=== PATIENT | male | born 1965 | race Caucasian/White ===

== ENCOUNTER → 2016-03-09 | Outpatient (CLI) | payer BC ==
[~2016-03-09] MED LIST: ADVIL,MOTRIN,R200 MG PO; CELEBREX50 MG PO; CHERATUSSIN AC120 ML PO; CIPROFLOXACIN500 MG PO; CLINDAMYCIN HC150 MG PO; HYDROCODONE BIT1 T11 PO; LEVAQUIN250 MG PO; LISINOPRIL HCTZ1 TA1 PO; LISINOPRIL10 MG PO; LYRICA25 MG PO; LYRICA75 M1 PO; MEDROL DOSEPAK4 MG PO; METOPROLOL SUCC50 M1 PO; MILLIPRED DP5 MG PO; MOBIC15 MG PO; MOBIC7.5 MG/5 M PO; NORCO 5-325 TA1 EACH PO; PAXIL10 MG PO; PAXIL30 M2 PO; PERCOCET 325 MG1 TA7 PO; PRAVACHOL10 MG PO; PRAVACHOL40 MG PO; PREDNICOT20 MG PO; PRILOSEC40 M1 PO; PROTONIX40 MG PO; VICODIN 500 MG-1 TAB PO; VIT D PO; ZOFRAN ODT4 MG SL; Zofran4 MG PO
[2016-03-09 08:40] LABS: BASO # 0.1 10*3/uL (0.0-0.1); BASO % 0.9 % (0.0-1.0); EOS # 0.3 10*3/uL (0.0-0.4); EOS % 3.3 % (1.0-4.0); HEMATOCRIT 45.7 % (42.0-52.0); HEMOGLOBIN 15.5 g/dl (14.0-18.0); IG # 0.1 10*3/uL (0.0-0.1); LYMPH # 2.5 10*3/uL (1.3-4.4); LYMPH % 30.9 % (27.0-41.0); MEAN CORPUSCULAR HGB 30.5 pg (27.0-31.0); MEAN CORPUSCULAR HGB CONC 33.9 g/dl (33.0-37.0); MEAN PLATELET VOLUME 9.8 fl (9.6-12.3); MONO % 12.5 % (3.0-9.0); NEUT # 4.2 10*3/uL (2.3-7.9); NEUT % 51.8 % (47.0-73.0); PLATELET COUNT AUTOMATED 206 10*3/uL (130-400); RED BLOOD COUNT 5.08 10*6/uL (4.50-5.90); RED CELL DISTRI WIDTH 12.7 % (0-14.5); WHITE BLOOD COUNT 8.2 10*3/uL (4.8-10.8)
[2016-03-09 09:25] LABS: ALBUMIN 3.8 gm/dl (3.1-4.5); ALKALINE PHOSPHATASE 76 U/L (45-117); BILIRUBIN, TOTAL 0.4 mg/dl (0.2-1.0); BUN 19 mg/dl (7-24); CARBON DIOXIDE 27 mmol/L (21-32); CHLORIDE 105 mmol/L (98-107); EST GLOM FILT AFRICAN AMERICAN > 60 ml/min; GLUCOSE 109 mg/dL (65-99); POTASSIUM 3.9 mmol/L (3.5-5.1); SGOT/AST 23 IU/L (3-35); SGPT/ALT 77 U/L (12-78); SODIUM 139 mmol/L (136-145); TOTAL PROTEIN 7.5 gm/dL (6.4-8.2)
[2016-03-09 09:34] LABS: CEA 2.1 ng/mL; THYROID STIM HORMONE (HS) 1.74 uIU/ml (0.358-4.75)
== END | disposition home or self-care (01) ==
LOC: LAB 08:14
PROVIDERS: Internal Medicine
DX: I10 Essential (primary) hypertension (principal); E78.2 Mixed hyperlipidemia; R91.1 Solitary pulmonary nodule

== ENCOUNTER → 2016-06-13 | Outpatient (CLI) | payer BC ==
[~2016-06-13] MED LIST changes: +ASPIRIN81 M1 PO; +CYCLOBENZAPRINE10 MG PO; +METOPROLOL SUC100 M1 PO; +PRAVACHOL20 MG PO; +TRICOR48 MG PO; +ZESTORETIC 12.51 TA1 PO
--- NOTE | ~2016-06-13 | ST ---
[place], [place] EXERCISE STRESS TEST REPORT NAME: MARK ANTHONY [facility]ARDIN [facility]: [id number] UNIT #: [id number] ROOM: DOCTOR: PIPPA VERDIN MD BIRTHDATE: [birth year] DOS: 06/13/2016 PHARMACOLOGIC STRESS TEST Study was done and is being dictated on 06/13/2016. INDICATIONS: Preoperative assessment prior to lung resection. PROCEDURE: The patient was given a rapid infusion of regadenoson 0.4 mg intravenously followed by a saline flush. He experienced dyspnea, abdominal pressure and head pressure. The resting electrocardiogram was normal. With the infusion, he had a normal increase in heart rate, but no diagnostic ST or T-wave changes. The resting heart rate of 64 brian to 93. The resting blood pressure of 108/72 fell to 98/60. Forty seconds after the infusion of regadenoson, radionuclide was administered. IMPRESSION: 1. Well tolerated infusion of regadenoson. 2. Radionuclide injected. Please see the separate imaging report for further details of the patient's stress test results. PIPPA VERDIN MD CM:STRESS:EXERCISE STRESS TEST REPORT [id number] PIPPA VERDIN MD
== END | disposition home or self-care (01) ==
LOC: CARD 02:56
DX: I10 Essential (primary) hypertension (principal)

== ENCOUNTER → 2017-02-04 | Outpatient (CLI) | payer OTHER ==
[2017-02-04 07:43] LABS: BASO # 0.1 10*3/uL (0.0-0.1); BASO % 0.6 % (0.0-1.0); EOS # 0.3 10*3/uL (0.0-0.4); EOS % 3.3 % (1.0-4.0); HEMATOCRIT 44.8 % (42.0-52.0); HEMOGLOBIN 15.1 g/dl (14.0-18.0); LYMPH # 2.1 10*3/uL (1.3-4.4); MEAN CELL VOLUME 88.9 fl (80.0-94.0); MEAN CORPUSCULAR HGB CONC 33.7 g/dl (33.0-37.0); MEAN PLATELET VOLUME 10.5 fl (9.6-12.3); MONO % 10.5 % (3.0-9.0); NEUT # 6.3 10*3/uL (2.3-7.9); NEUT % 64.2 % (47.0-73.0); PLATELET COUNT AUTOMATED 206 10*3/uL (130-400); RED BLOOD COUNT 5.04 10*6/uL (4.50-5.90); RED CELL DISTRI WIDTH 13.2 % (0-14.5); WHITE BLOOD COUNT 9.8 10*3/uL (4.8-10.8)
[2017-02-04 08:11] LABS: ALBUMIN 3.6 gm/dl (3.1-4.5); ALKALINE PHOSPHATASE 87 U/L (45-117); BUN 20 mg/dl (7-24); CHLORIDE 105 mmol/L (98-107); CHOLESTEROL 290 mg/dL (<200); CREATININE 1.03 mg/dL (0.70-1.30); HDL CHOLESTEROL 35 mg/dl (40-60); POTASSIUM 4.1 mmol/L (3.5-5.1); SGOT/AST 25 IU/L (3-35); SGPT/ALT 60 U/L (12-78); SODIUM 140 mmol/L (136-145); TOTAL PROTEIN 7.3 gm/dL (6.4-8.2); TRIGLYCERIDES 552 mg/dl (<150)
[2017-02-04 08:18] LABS: THYROID STIM HORMONE (HS) 0.684 uIU/ml (0.358-4.75)
[2017-02-06 07:08] LABS: RHEUMATOID ARTHRITIS FACTOR <10.0 IU/mL (0.0-13.9)
[2017-02-06 21:05] LABS: CCP ANTIBODIES IGG/IGA 3 units (0-19)
== END | disposition home or self-care (01) ==
LOC: LAB 06:49
PROVIDERS: Internal Medicine
DX: J43.9 Emphysema, unspecified (principal); E78.2 Mixed hyperlipidemia; G47.33 Obstructive sleep apnea (adult) (pediatric); E66.2 Morbid (severe) obesity with alveolar hypoventilation; I10 Essential (primary) hypertension; E55.9 Vitamin D deficiency, unspecified; M15.0 Primary generalized (osteo)arthritis

== ENCOUNTER → 2017-08-14 | Outpatient (CLI) | payer OTHER ==
[~2017-08-14] MED LIST changes: +Anusol Hc,Anuco25 MG R; +GEMFIBROZIL600 MG PO; +Metformin Hydr500 MG PO; -PRAVACHOL20 MG PO; +SIMVASTATIN20 MG PO; +TRICOR145 M1 PO; +VITAMIN D-32000 UNIT PO
== END | disposition home or self-care (01) ==
LOC: D 15:09
DX: E11.9 Type 2 diabetes mellitus without complications (principal); Z88.6 Allergy status to analgesic agent; Z88.1 Allergy status to other antibiotic agents

== ENCOUNTER 2017-08-23 05:31 | Inpatient (IN) | payer OTHER ==
[~2017-08-23] VITALS: Ht 172.7 cm; Wt 117.4 kg
[2017-08-23] VITALS (20 sets, daily range): BP systolic 80–120; BP diastolic 35–68
--- NOTE | ~2017-08-23 | O ---
[place], [place] OPERATIVE NOTE NAME: MARK ANTHONY HARDIN UNIT #: [id number] [facility] DOCTOR: CARLOTA NGUYENDAVISFORMERLY [facility] BIRTH[facility] [birth year] DOS: 08/24/2017 GASTROENDOSCOPIC REPORT INDICATIONS: The patient is a 52-year-old who has presented to Emergency Room with chief complaint of lower GI or rectal bleeding. The patient had stable H and H at the time of admission with 14 and 41.8. Basic metabolic BUN and creatinine was elevated at 45 and 1.9. We were concerned about that. GFR was 45. This was possibly signaling that there could be an upper GI bleed. Electrolytes were balanced. CBC differential, white blood cell remained normal and platelet was within normal limits. Ionized calcium was 4.8. Lactic acid dropped to 1.5. INR was 0.9. Comprehensive metabolic panel reassessed. Further confirmation of elevation of BUN and creatinine was of concern to 52 and 2.24. Hemoglobin A1c 6.3. CT scan of the abdomen and pelvis was done. Normal bowel wall index, no herniation, moderate hepatomegaly, marked diffuse hepatic steatosis, no gallstone, postsurgical scarring of the left lower lobe, severe spinal canal narrowing at the L3-L4 CT scan of the chest was done, scarring of left lower lobe was again noticed as old information. His MRSA was negative. Comprehensive metabolic panel again readdressed and drop of BUN and creatinine to 33 and 1.3 after hydration was noticed. Electrolytes remain normal. Magnesium 2.3 and triglycerides 606. On the other hand, the liver function tests are normal, so this should not be "the biliary distress," but for sure, we are going to obtain a serum lipase and amylase to make sure we have a baseline and we are going to consider therapy after the above problem. PAST MEDICAL HISTORY: Has been associated with obesity, major depression, hypertension, anxiety, lung cancer, lumbar radiculopathy, spinal stenosis. PAST SURGICAL HISTORY: Diskectomy, laminectomy, pneumonectomy, left shoulder prosthesis and renal stent. SOCIAL HISTORY: Marijuana user, tobacco user and social alcohol consumer. FAMILY HISTORY: Noncontributory, adopted. ALLERGIES: KEFLEX. MEDICATIONS: Reviewed. He is already on fenofibrate at home, TriCor has been taken fenofibrate. PROCEDURE: Today's procedure part of investigation of rectal bleed, bright blood per rectum is colonoscopy. PREMEDICATION: Propofol. SCOPE: Olympus forward-viewing colonoscope 10L video. REPORT: After putting the patient in left lateral position and application of lubricant to the scope, the scope was introduced; thereafter, under direct visualization, advanced through the length of colon without difficulty. [place], [place] OPERATIVE NOTE NAME: MARK ANTHONY HARDIN UNIT #: [id number] ROOM: [facility] DOCTOR: CARLOTA NGUYEN,CARIN BIRTHDATE: [birth year] the cecum explored, appendiceal orifice identified, ileocecal valve was defined. No ischemia, no ulceration, no mucosal disturbance was seen throughout the entire colon. GI reflection of the scope in the rectum yields as very small hemorrhoid with some anusitis. The patient extubated after photographic series, tolerated the procedure well. IMPRESSION: Very small hemorrhoid and mild anusitis. PLAN AND DISCUSSION: Anucort-HC suppository 1 at bedtime for the next 4 days and then after that p.r.n. The patient advised not to be concerned about future spots bleeding as well. As far as the extreme hypertriglyceridemia is concerned, Lopid 600 mg b.i.d. is recommended till the triglyceride levels are normalized and then on a maintenance TriCor and other alternatives in future. A serum lipase and amylase is going to be organized in case he has silent pancreatitis as well on board. Dietary modification discussed with him. CARIN VAN MD CM:OPRECORD:OPERATIVE NOTE [id number] CARIN VAN MD 08/24/17 170 interface
[~2017-08-23 05:31] MED LIST changes: -Anusol Hc,Anuco25 MG R; -GEMFIBROZIL600 MG PO; -Metformin Hydr500 MG PO; -TRICOR145 M1 PO; -VITAMIN D-32000 UNIT PO
[2017-08-23 06:22] LABS: BASO # 0.1 10*3/uL (0.0-0.1); BASO % 0.8 % (0.0-1.0); EOS # 0.4 10*3/uL (0.0-0.4); EOS % 4.5 % (1.0-4.0); HEMATOCRIT 41.4 % (42.0-52.0); HEMOGLOBIN 13.9 g/dl (14.0-18.0); LYMPH # 2.2 10*3/uL (1.3-4.4); LYMPH % 27.2 % (27.0-41.0); MEAN CELL VOLUME 91.8 fl (80.0-94.0); MEAN CORPUSCULAR HGB 30.8 pg (27.0-31.0); MEAN CORPUSCULAR HGB CONC 33.6 g/dl (33.0-37.0); MEAN PLATELET VOLUME 10.5 fl (9.6-12.3); MONO % 12.1 % (3.0-9.0); NEUT # 4.4 10*3/uL (2.3-7.9); NEUT % 54.9 % (47.0-73.0); PLATELET COUNT AUTOMATED 185 10*3/uL (130-400); RED BLOOD COUNT 4.51 10*6/uL (4.50-5.90); RED CELL DISTRI WIDTH 13.7 % (0-14.5)
[2017-08-23 06:31] LABS: ACT PARTIAL THROMBO TIME 25.6 SECONDS (20.8-31.5); INTERNATIONAL NORM RATIO 0.9 (2.0-3.5)
[2017-08-23 06:38] LABS: ALBUMIN 3.8 gm/dl (3.1-4.5); ALKALINE PHOSPHATASE 84 U/L (45-117); BUN 52 mg/dl (7-24); CHLORIDE 107 mmol/L (98-107); CREATININE 2.24 mg/dL (0.70-1.30); LIPASE 253 U/L (73-393); POTASSIUM 4.2 mmol/L (3.5-5.1); SGOT/AST 28 IU/L (3-35); SGPT/ALT 53 U/L (12-78); SODIUM 141 mmol/L (136-145); TOTAL PROTEIN 7.2 gm/dL (6.4-8.2)
[2017-08-23 06:39] LABS: TROPONIN I < 0.015 ng/ml (<0.045)
[2017-08-23 09:14] LABS: BILIRUBIN NEGATIVE (NEGATIVE); BLOOD NEGATIVE (NEGATIVE); CLARITY SL CLOUDY (CLEAR); COLOR YELLOW (YELLOW); GLUCOSE NEGATIVE (NEGATIVE); KETONE NEGATIVE (NEGATIVE); LEUKO ESTERASE NEGATIVE (NEGATIVE); NITRITE NEGATIVE (NEGATIVE); PH 5.5 (5.0-9.0); SPECIFIC GRAVITY 1.025 (1.005-1.030); UROBILINOGEN 0.2 E.U./dl (0.2-1.0)
[2017-08-23 10:02] LABS: BACTERIA TRACE; RBC 0-2 rbc/hpf (0-2)
[2017-08-23] MEDS ORDERED: Metformin Hydr500 MG PO (12:24)
[2017-08-24] VITALS (8 sets, daily range): BP systolic 100–140; BP diastolic 45–92
[2017-08-24 05:57] LABS: BASO # 0.1 10*3/uL (0.0-0.1); BASO % 0.7 % (0.0-1.0); EOS # 0.3 10*3/uL (0.0-0.4); EOS % 4.9 % (1.0-4.0); HEMATOCRIT 40.6 % (42.0-52.0); HEMOGLOBIN 13.2 g/dl (14.0-18.0); LYMPH # 1.8 10*3/uL (1.3-4.4); MEAN CELL VOLUME 92.1 fl (80.0-94.0); MEAN CORPUSCULAR HGB 29.9 pg (27.0-31.0); MEAN CORPUSCULAR HGB CONC 32.5 g/dl (33.0-37.0); MONO # 0.7 10*3/uL (0.1-1.0); MONO % 10.6 % (3.0-9.0); NEUT % 57.5 % (47.0-73.0); PLATELET COUNT AUTOMATED 170 10*3/uL (130-400); RED BLOOD COUNT 4.41 10*6/uL (4.50-5.90); RED CELL DISTRI WIDTH 13.5 % (0-14.5); WHITE BLOOD COUNT 6.9 10*3/uL (4.8-10.8)
[2017-08-24 06:10] LABS: ALBUMIN 3.7 gm/dl (3.1-4.5); ALKALINE PHOSPHATASE 68 U/L (45-117); CHLORIDE 109 mmol/L (98-107); CREATININE 1.31 mg/dL (0.70-1.30); PHOSPHOROUS 2.7 mg/dL (2.5-4.9); POTASSIUM 4.5 mmol/L (3.5-5.1); SGOT/AST 27 IU/L (3-35); SGPT/ALT 51 U/L (12-78); SODIUM 142 mmol/L (136-145)
[2017-08-24 06:13] LABS: ACT PARTIAL THROMBO TIME 25.8 SECONDS (20.8-31.5)
[2017-08-24 06:15] LABS: CHOLESTEROL 220 mg/dL (<200); HDL CHOLESTEROL 28 mg/dl (40-60); TRIGLYCERIDES 606 mg/dl (<150)
[2017-08-24 06:21] LABS: BUN 33 mg/dl (7-24)
[2017-08-24 07:47] LABS: VITAMIN D, 25-HYDROXY 13.8 ng/mL (30-100)
[2017-08-24] MEDS ORDERED: VITAMIN D-32000 UNIT PO (10:43)
[2017-08-24] MEDS ORDERED: TRICOR145 M1 PO (10:47)
[2017-08-24] MEDS ORDERED: Anusol Hc,Anuco25 MG R ×2 (17:35→17:59)
[2017-08-24] MEDS ORDERED: GEMFIBROZIL600 MG PO (17:35)
== END 2017-08-24 17:45 | disposition home or self-care (01) | DRG 393 ==
LOC: ED 05:31 → EDHOLD 10:09 → ICCU 10:09
PROVIDERS: Emergency Medicine Emergency Medical Services; Family Medicine
PROC: 0DJD8ZZ Inspection of Lower Intestinal Tract, Via Natural or Artificial Opening Endoscopic (ICD-10-PCS; principal; 2017-08-24)
DX: K64.9 Unspecified hemorrhoids (principal); N17.0 Acute kidney failure with tubular necrosis; I95.9 Hypotension, unspecified; E11.65 Type 2 diabetes mellitus with hyperglycemia; K76.0 Fatty (change of) liver, not elsewhere classified; E83.41 Hypermagnesemia; E66.01 Morbid (severe) obesity due to excess calories; F33.9 Major depressive disorder, recurrent, unspecified; M48.061 Spinal stenosis, lumbar region without neurogenic claudication; J44.9 Chronic obstructive pulmonary disease, unspecified; M54.16 Radiculopathy, lumbar region; M54.30 Sciatica, unspecified side; F41.1 Generalized anxiety disorder; I10 Essential (primary) hypertension; Z85.118 Personal history of other malignant neoplasm of bronchus and lung; F17.210 Nicotine dependence, cigarettes, uncomplicated; Z88.1 Allergy status to other antibiotic agents; Z79.82 Long term (current) use of aspirin; Z79.84 Long term (current) use of oral hypoglycemic drugs; Z71.6 Tobacco abuse counseling; F12.10 Cannabis abuse, uncomplicated; K62.89 Other specified diseases of anus and rectum; Z68.39 Body mass index [BMI] 39.0-39.9, adult

== ENCOUNTER 2018-01-02 15:11 | Emergency (ER) | payer OTHER ==
[~2018-01-02] VITALS: Ht 172.7 cm; Wt 117.9 kg
[~2018-01-02 15:11] MED LIST changes: +Anusol Hc,Anuco25 MG R; +GEMFIBROZIL600 MG PO; +Metformin Hydr500 MG PO; +TRICOR145 M1 PO; +VITAMIN D-32000 UNIT PO
[2018-01-02] MEDS ORDERED: CYCLOBENZAPRINE10 MG PO (15:40)
[2018-01-02] MEDS ORDERED: NAPROSYN500 MG PO (15:40)
[2018-01-02] MEDS ORDERED: PREDNISONE50 MG PO (15:40)
== END 2018-01-02 16:50 | disposition home or self-care (01) ==
LOC: ED 15:11
DX: S39.012A Strain of muscle, fascia and tendon of lower back, initial encounter (principal); R10.32 Left lower quadrant pain; I10 Essential (primary) hypertension; E11.9 Type 2 diabetes mellitus without complications; E78.5 Hyperlipidemia, unspecified; F17.200 Nicotine dependence, unspecified, uncomplicated; Z88.1 Allergy status to other antibiotic agents; Z79.899 Other long term (current) drug therapy; Z98.890 Other specified postprocedural states; X50.1XXA Overexertion from prolonged static or awkward postures, initial encounter; Y93.89 Activity, other specified; Y92.89 Other specified places as the place of occurrence of the external cause; Y99.8 Other external cause status

== ENCOUNTER → 2018-08-11 | Outpatient (CLI) | payer OTHER ==
[~2018-08-11] MED LIST changes: +NAPROSYN500 MG PO; +PREDNISONE50 MG PO
[2018-08-11 07:45] LABS: HEMATOCRIT 48.6 % (42.0-52.0); MEAN CORPUSCULAR HGB CONC 32.9 g/dl (33.0-37.0); MEAN PLATELET VOLUME 10.3 fl (9.6-12.3); RED BLOOD COUNT 5.34 10*6/uL (4.50-5.90); RED CELL DISTRI WIDTH 12.9 % (0-14.5)
[2018-08-11 08:10] LABS: ALBUMIN 3.5 gm/dl (3.1-4.5); ALKALINE PHOSPHATASE 112 U/L (45-117); BUN 12 mg/dl (7-24); CHLORIDE 106 mmol/L (98-107); CHOLESTEROL 256 mg/dL (<200); CREATININE 1.03 mg/dL (0.70-1.30); HDL CHOLESTEROL 32 mg/dl (40-60); LDL CHOLESTEROL 151 mg/dL (9-159); POTASSIUM 3.7 mmol/L (3.5-5.1); SGOT/AST 39 IU/L (3-35); SGPT/ALT 73 U/L (12-78); SODIUM 140 mmol/L (136-145); TOTAL PROTEIN 7.1 gm/dL (6.4-8.2); TRIGLYCERIDES 365 mg/dl (<150); VLDL CHOLESTEROL 73 mg/dL (6-40)
== END | disposition home or self-care (01) ==
LOC: LAB 06:43
PROVIDERS: Physician Assistant
DX: E11.9 Type 2 diabetes mellitus without complications (principal); F33.41 Major depressive disorder, recurrent, in partial remission; G89.29 Other chronic pain; C34.92 Malignant neoplasm of unspecified part of left bronchus or lung

== ENCOUNTER → 2018-12-23 | Outpatient (CLI) | payer OTHER ==
[2018-12-23 09:36] LABS: CREATININE 0.93 mg/dL (0.70-1.30)
== END | disposition home or self-care (01) ==
LOC: CT 09:06 → LAB 09:06 → CT 10:00
PROVIDERS: Radiology Diagnostic Radiology
DX: E11.9 Type 2 diabetes mellitus without complications (principal); M48.061 Spinal stenosis, lumbar region without neurogenic claudication; R94.5 Abnormal results of liver function studies; R04.2 Hemoptysis

== ENCOUNTER → 2019-01-09 | Outpatient (CLI) | payer OTHER | END | disposition home or self-care (01) | LOC: US 06:59 | DX: E11.9 Type 2 diabetes mellitus without complications (principal); R94.5 Abnormal results of liver function studies; C34.92 Malignant neoplasm of unspecified part of left bronchus or lung; M48.061 Spinal stenosis, lumbar region without neurogenic claudication; K04.7 Periapical abscess without sinus; K76.0 Fatty (change of) liver, not elsewhere classified ==

== ENCOUNTER 2019-08-02 07:55 | Inpatient (IN) | payer OTHER ==
[~2019-08-02] VITALS: Ht 172.7 cm; Wt 114.3 kg
[2019-08-02] VITALS (7 sets, daily range): BP systolic 128–143; BP diastolic 68–88
[2019-08-02 08:31] LABS: BASO # 0.1 10*3/uL (0.0-0.1); BASO % 0.5 % (0.0-1.0); EOS # 0.2 10*3/uL (0.0-0.4); HEMATOCRIT 46.2 % (42.0-52.0); LYMPH # 1.3 10*3/uL (1.3-4.4); LYMPH % 13.2 % (27.0-41.0); MEAN CELL VOLUME 89.7 fl (80.0-94.0); MEAN CORPUSCULAR HGB 30.3 pg (27.0-31.0); MEAN CORPUSCULAR HGB CONC 33.8 g/dl (33.0-37.0); MEAN PLATELET VOLUME 10.5 fl (9.6-12.3); MONO # 0.9 10*3/uL (0.1-1.0); NEUT # 7.6 10*3/uL (2.3-7.9); NEUT % 74.9 % (47.0-73.0); NUCLEATED RED BLOOD CELL 0.2 % (0.0-0.0); PLATELET COUNT AUTOMATED 140 10*3/uL (130-400); RED BLOOD COUNT 5.15 10*6/uL (4.50-5.90); RED CELL DISTRI WIDTH 12.6 % (0-14.5); WHITE BLOOD COUNT 10.2 10*3/uL (4.8-10.8)
[2019-08-02 08:41] LABS: ACT PARTIAL THROMBO TIME 25.9 SECONDS (20.0-32.1)
[2019-08-02 08:46] LABS: ALBUMIN 3.5 gm/dl (3.1-4.5); ALKALINE PHOSPHATASE 109 U/L (45-117); BUN 14 mg/dl (7-24); CHLORIDE 104 mmol/L (98-107); LIPASE 897 U/L (73-393); POTASSIUM 4.3 mmol/L (3.5-5.1); SGOT/AST 32 IU/L (3-35); SGPT/ALT 72 U/L (12-78); SODIUM 134 mmol/L (136-145); TOTAL PROTEIN 7.8 gm/dL (6.4-8.2)
[2019-08-02 08:50] LABS: TROPONIN I < 0.015 ng/ml (<0.045)
--- NOTE | 2019-08-02 09:00 | NUR ---
PT REPORTS THE MEDICATIONS DID HELP BUT THE PAIN TO HIS LUQ IS RETURNING. WILL NOTIFIED DR GIORDANO.
[2019-08-02 10:29] LABS: BILIRUBIN NEGATIVE (NEGATIVE); BLOOD NEGATIVE (NEGATIVE); CLARITY CLEAR (CLEAR); COLOR YELLOW (YELLOW); EPITHELIAL CELLS 0-2; GLUCOSE 2+ (NEGATIVE); KETONE NEGATIVE (NEGATIVE); LEUKO ESTERASE NEGATIVE (NEGATIVE); NITRITE NEGATIVE (NEGATIVE); RBC 0-2 rbc/hpf (0-2); SPECIFIC GRAVITY 1.015 (1.005-1.030); UROBILINOGEN < 0.2 E.U./dl (0.2-1.0); WBC 0-2 wbc/hpf (0-5)
--- NOTE | 2019-08-02 10:30 | NUR ---
PT WAS MEDICATED AGAIN FOR APIN. REPORTS "IT SEEMS TO BE WORK RIGHT NOW". CALL LIGHT IN REACH WILL MONITOR.
--- NOTE | 2019-08-02 11:37 | NUR ---
The assessment has been completed. KIM GALLAGHER Time: 1137 A 54 year old MALE admitted to 5E under services of IRMA VANEGAS DO, Pt. arrived via ambulatory from ER. Chief complaint: ABD PAIN X3-4DAYS WITH NAUSEA/VOMITING. KIM GALLAGHER
[2019-08-02] MEDS ORDERED: ZESTRIL10 MG PO (11:42)
--- NOTE | 2019-08-02 12:05 | NUR ---
PT C/O SEVERE PAINAND REQUESTING SOMETHING OTHER THAN MORPHINE BECAUSE IT DOES NOT WORK. SPOKE WITH DR GARVEY WHO STATES HE WILL PUT SOMETHING IN
--- NOTE | 2019-08-02 12:09 | NUR ---
PT MEDICATED W ZOFRAN FOR C/O NAUSEA
--- NOTE | 2019-08-02 12:26 | NUR ---
PT C/O 10/12 ABDOMINAL PAIN. MEDICATED PER ORDER. WILL MONITOR FOR RELIEF. VOICES NO OTHER CONCERNS AT THIS TIME. RESTING IN BED. RESPS EASY AND NON LABORED. NO S/S OF DISTRESS. CALL LIGHT WITHIN REACH.
--- NOTE | 2019-08-02 13:11 | NUR ---
MEDICATIONS APPEAR EFFECTIVE. PT SLEEPING. RESPS EASY AND NON LABORED. NO S/S OF DISTRESS NOTED. CALL LIGHT WITHIN REACH
--- NOTE | 2019-08-02 15:26 | NUR ---
PT MOANING/GROANING STATING HIS BELLY PAIN IS EXCRUCIATING AND WOULD LIKE MORE PAIN MEDICATION. STATES IT IS A 9/10. MEDICATED PER ORDER. WILL MONITOR FOR RELIEF. RESTING IN BED. RESPS NON LABORED. CALL LIGHT WITHIN REACH.
--- NOTE | 2019-08-02 16:00 | NUR ---
CALLED INTO PTS ROOM, STATES HE FEELS LIKE SOMETHING EXPLODED INSIDE OF HIS STOMACH. REQUESTING TO SEE A DOCTOR. SPOKE WTIH DR GARVEY WHO STATES HE IS ON HIS WAY TO THE FLOOR
--- NOTE | 2019-08-02 16:21 | NUR ---
STAT 0.5IV DILAUDID GIVEN. PT SEEMS MORE RELAXED AT THIS TIME. WILL MONITOR. CALL LIGHT WITHIN REACH
--- NOTE | 2019-08-02 17:21 | NUR ---
PT SLEEPING. MEDICATION APPEARS EFFECCTIVE. AROUSES EASILY. RESPS EASY AND NON LABORED. CALL LIGHT WITHIN REACH.
--- NOTE | 2019-08-02 18:22 | NUR ---
PT REMAINS SLEEPING. NO S/S OF DISTRESS NOTED. RESPS EASY AND NON LABORED. CALL LIGHT WITHIN REACH
--- NOTE | 2019-08-02 19:30 | NUR ---
PATIENT BELLIGERENT, CURSING AT STAFF. STATES HE IS LEAVING. EXPLAINED TO PATIENT THAT IF HE LEAVES, IT WOULD BE AGAINST MEDICAL ADVICE OR I COULD MEDICATE HIM FOR PAIN AND CALL THE DR FOR FURTHER ORDERS.
--- NOTE | 2019-08-02 19:35 | NUR ---
PATIENT'S CALLED [facility] REGARDING PAIN CONTROL. STATES IS CALLING HER AT HOME STATING HE WANTS TO LEAVE. REQUESTING TORADOL. EXPLAINED TO THAT I WOULD BE ASSESSING PATIENT AND MEDICATING WITH PRN DILAUDID AND WOULD THEN CALL
--- NOTE | 2019-08-02 19:49 | NUR ---
RETURNED TO ROOM WITH AMA PAPER AND IV DILAUDID. EXPLAINED TO PATIENT THAT I HAD SPOKEN TO HIS TO WHICH PATIENT YELLS "F*CK CRYSTAL." PATIENT CONTINUES TO BE BELLIGERENT, REPEATEDLY YELLING F*CK. EXPLAINED TO PATIENT THAT I WAS ATTEMPTING TO CONTROL HIS PAIN. PATIENT AGGREEABLE TO STAYING AND RECEIVING IV DILAUDID - MEDICATED PER PRN ORDER FOR COMPLAINTS OF PAIN RATING A 10+. WILL MONITOR
--- NOTE | 2019-08-02 20:00 | NUR ---
DR GIRON CONTACTED AND INFORMED REQUESTING TORADOL. LABS REVIEWED. NEW ORDERS RECEIVED
--- NOTE | 2019-08-02 20:19 | NUR ---
PATIENT CONTINUES TO MOAN DRAMATICALLY. MEDCIATED WITH 1 TIME DOSE OF TORADOL FOR COMPLAINTS OF PAIN RATING A 10. CALL LIGHT WITHIN REACH. WILL MONITOR
--- NOTE | 2019-08-02 21:00 | NUR ---
CONTINUES TO MOAN. STATES PAIN IMPROVED AND NOW RATES A 5. CALL LIGHT WITHIN REACH. WILL MONITOR
--- NOTE | 2019-08-02 21:49 | NUR ---
AGAIN DRAMATICALLY MOANING. MEDICATED WITH DILAUDID IV PER PRN ORDER FOR COMPLAINTS OF LEFT ABD/FLANK PAIN RATING A 10. CALL LIGHT WITHIN REACH. IV FLUIDS MAINTAINED. WILL MONITOR
--- NOTE | 2019-08-02 22:30 | NUR ---
MEDS APPEAR EFFECTIVE. RESTING WITH EYES CLOSED. RESPIRATIONS EASY. IV FLUIDS MAINTAINED. CALL LIGHT WITHIN REACH
--- NOTE | 2019-08-02 23:55 | NUR ---
24 HR chart check completed.
[2019-08-03] VITALS: BP 148/86
[2019-08-03] MEDS ORDERED: OMEPRAZOLE MAGN20 MG PO (00:07)
[2019-08-03] MEDS ORDERED: TRELEGY ELLIPT1 EACH INH (00:11)
--- NOTE | 2019-08-03 00:16 | NUR ---
MEDICATED WITH DILAUDID IV PER PRN ORDER FOR COMPLAINTS OF LEFT ABD/FLANK PAIN RATING A 5. CALL LIGHT WITHIN REACH. WILL MONITOR
--- NOTE | 2019-08-03 01:00 | NUR ---
MEDS APPEAR EFFECTIVE. RESTING WITH EYES CLOSED. RESPIRATIONS EASY. CALL LIGHT WITHIN REACH
--- NOTE | 2019-08-03 02:29 | NUR ---
MEDICATED WITH DILAUDID IV FOR COMPLAINTS OF ABD PAIN RATING AN 8. CALL LIGHT WITHIN REACH. WILL MONITOR
--- NOTE | 2019-08-03 03:15 | NUR ---
REMAINS AWAKE, MOANING. STATES [facility] "HELPED." CALL LIGHT WITHIN REACH. NO FURTHER VOICED COMPLAINTS
--- NOTE | 2019-08-03 04:28 | NUR ---
MEDICATED WITH DILAUDID FOR COMPLAINTS OF ABD PAIN RATING A 5. CONTINUES TO MOAN. WILL MONITOR
--- NOTE | 2019-08-03 05:15 | NUR ---
MEDS EFFECTIVE. RESTING MORE COMFORTABLY. RESPIRATIONS EASY. IV FLUIDS MAINTAINED. CALL LIGHT WITHIN REACH. NO FURTHER VOICED COMPLAINTS
--- NOTE | 2019-08-03 06:00 | NUR ---
STANDING AT DOORWAY ASKING WHEN DR'S WILL BE ROUNDING. STATES HE IS READY FOR D/C. PATIENT RECEPTIVE TO WAITING FOR DR'S TO ROUND
--- NOTE | 2019-08-03 06:26 | NUR ---
MEDICATED WITH DILAUDID IV PER PRN ORDER FOR COMPLAINTS OF ABD PAIN RATING A 5. CALL LIGHT WITHIN REACH. WILL MONITOR
[2019-08-03 07:00] LABS: BASO % 0.1 % (0.0-1.0); EOS # 0.1 10*3/uL (0.0-0.4); EOS % 1.1 % (1.0-4.0); HEMATOCRIT 47.3 % (42.0-52.0); LYMPH # 2.2 10*3/uL (1.3-4.4); LYMPH % 19.5 % (27.0-41.0); MEAN CELL VOLUME 90.4 fl (80.0-94.0); MEAN CORPUSCULAR HGB CONC 33.2 g/dl (33.0-37.0); MONO # 1.3 10*3/uL (0.1-1.0); MONO % 11.7 % (3.0-9.0); NEUT # 7.5 10*3/uL (2.3-7.9); NEUT % 67.2 % (47.0-73.0); PLATELET COUNT AUTOMATED 146 10*3/uL (130-400); RED BLOOD COUNT 5.23 10*6/uL (4.50-5.90); RED CELL DISTRI WIDTH 12.8 % (0-14.5); WHITE BLOOD COUNT 11.2 10*3/uL (4.8-10.8)
--- NOTE | 2019-08-03 07:15 | NUR ---
MEDS EFFECTIVE. SITTING AT BEDSIDE. NO DISTRESS NOTED. NO FURTHER VOICED COMPLAINTS
[2019-08-03 07:26] LABS: CHLORIDE 102 mmol/L (98-107); POTASSIUM 3.9 mmol/L (3.5-5.1); SODIUM 135 mmol/L (136-145)
[2019-08-03 07:50] LABS: BUN 10 mg/dl (7-24); CHOLESTEROL 290 mg/dL (<200); CREATININE 0.94 mg/dL (0.70-1.30); HDL CHOLESTEROL 33 mg/dl (40-60); TRIGLYCERIDES 586 mg/dl (<150)
--- NOTE | 2019-08-03 07:53 | NUR ---
IN ROOM TO COMPLETE ASSESSMENT, HE STATES "I AM BETTER, JUST WAITING FOR THE DOCTOR TO GET ME OUT OF HERE SO I CAN HAVE A CIGARETTE". PT NOTES THAT HIS ABDOMEN PAIN IS STILL THERE, BUT NOT SEVERE COMPARED TO ARRIVAL OF HOSPITAL. CALL LIGHT WITHIN REACH, WILL CONTINUE TO MONITOR
[2019-08-03 07:55] LABS: LIPASE 2058 U/L (73-393)
[2019-08-03 08:00] VITALS: BP 128/66
--- NOTE | 2019-08-03 08:10 | NUR ---
DR GONZALEZ IN PT ROOM AT THIS TIME
--- NOTE | 2019-08-03 09:39 | NUR ---
PT IN HALLWAY AND AT DESK STATING "WHERE IS DR GONZALEZ, HE TOLD ME 0930 HE WOULD BE HERE AND HE IS 9 MINUTES LATE, THIS IS VERY IMPORTANT WHERE IS HE". DR GONZALEZ CALLED AND STATES HE WILL BE RIGHT IN TO SEE PATIENT
--- NOTE | 2019-08-03 10:12 | NUR ---
PT VERY AGITATED AND STATING HE WANTS TO LEAVE AND IS NOT WAITING FOR THE DOCTORS ANYMORE
--- NOTE | 2019-08-03 10:15 | NUR ---
IN PT ROOM AT THIS TIME TO TAKE IV OUT, PT REFUSES TO SIGN HIS AMA PAPERS AND TO WAIT FOR DR DAVILA. PT LEAVING THE FLOOR AT THIS TIME
== END 2019-08-03 10:15 | disposition left against medical advice (07) | DRG 439 ==
LOC: ED 07:55 → EDHOLD 09:16 → 5E 09:50
PROVIDERS: Emergency Medicine; Family Medicine; ADMIT Internal Medicine
DX: K85.30 Drug induced acute pancreatitis without necrosis or infection (principal); E87.1 Hypo-osmolality and hyponatremia; E78.1 Pure hyperglyceridemia; I10 Essential (primary) hypertension; K21.9 Gastro-esophageal reflux disease without esophagitis; E66.01 Morbid (severe) obesity due to excess calories; M48.061 Spinal stenosis, lumbar region without neurogenic claudication; E11.65 Type 2 diabetes mellitus with hyperglycemia; R79.89 Other specified abnormal findings of blood chemistry; K76.0 Fatty (change of) liver, not elsewhere classified; Z96.612 Presence of left artificial shoulder joint; F32.9 Major depressive disorder, single episode, unspecified; F41.1 Generalized anxiety disorder; Z53.29 Procedure and treatment not carried out because of patient's decision for other reasons; T50.995A Adverse effect of other drugs, medicaments and biological substances, initial encounter; Y92.89 Other specified places as the place of occurrence of the external cause; Z88.1 Allergy status to other antibiotic agents; Z85.118 Personal history of other malignant neoplasm of bronchus and lung; Z87.891 Personal history of nicotine dependence; Z79.899 Other long term (current) drug therapy; Z68.38 Body mass index [BMI] 38.0-38.9, adult

== ENCOUNTER 2020-01-19 08:50 | Emergency (ER) | payer OTHER ==
[~2020-01-19 08:50] MED LIST changes: +OMEPRAZOLE MAGN20 MG PO; +TRELEGY ELLIPT1 EACH INH; +ZESTRIL10 MG PO
[2020-01-19 09:18] LABS: BILIRUBIN 1+ (Negative); BLOOD 3+ (Negative); CLARITY Turbid (Clear); COLOR Red (Yellow); GLUCOSE 1+ (Negative); KETONE Negative (Negative); LEUKO ESTERASE 3+ (Negative); NITRITE Negative (Negative); PH 5.5 (4.5-8.0); SPECIFIC GRAVITY >= 1.030 (1.001-1.030)
[2020-01-19 09:30] LABS: BACTERIA 2+; RBC TNTC rbc/hpf (0-2); WBC TNTC wbc/hpf (0-5)
[2020-01-19 09:41] LABS: HEMATOCRIT 43.1 % (42.0-52.0); MEAN CELL VOLUME 88.3 fl (80.0-94.0); MEAN CORPUSCULAR HGB 29.3 pg (27.0-31.0); MEAN CORPUSCULAR HGB CONC 33.2 g/dl (33.0-37.0); MEAN PLATELET VOLUME 10.1 fl (9.6-12.3); PLATELET COUNT AUTOMATED 211 10*3/uL (130-400); RED BLOOD COUNT 4.88 10*6/uL (4.50-5.90); RED CELL DISTRI WIDTH 13.1 % (0-14.5); WHITE BLOOD COUNT 14.4 10*3/uL (4.8-10.8)
[2020-01-19 09:52] LABS: ACT PARTIAL THROMBO TIME 27.6 SECONDS (20.0-32.1); INTERNATIONAL NORM RATIO 1.1 (2.0-3.5)
[2020-01-19 09:57] LABS: BASOPHILS 1 % (0-1); PLATELET SUFFICIENCY NORMAL (NORMAL); TOTAL CELLS COUNTED 100 #CELLS
[2020-01-19 09:58] LABS: ALBUMIN 3.5 gm/dl (3.1-4.5); ALKALINE PHOSPHATASE 92 U/L (45-117); BUN 14 mg/dl (7-24); CHLORIDE 108 mmol/L (98-107); CREATININE 0.81 mg/dL (0.70-1.30); LIPASE 638 U/L (73-393); POTASSIUM 3.6 mmol/L (3.5-5.1); SGOT/AST 12 IU/L (3-35); SGPT/ALT 40 U/L (12-78); SODIUM 138 mmol/L (136-145); TOTAL PROTEIN 7.3 gm/dL (6.4-8.2)
[2020-01-19] MEDS ORDERED: SEPTDS PO (12:35)
[2020-01-19] MEDS ORDERED: PYRIDIUM200 M1 PO (12:35)
== END 2020-01-19 12:56 | disposition home or self-care (01) ==
LOC: ED 08:50
PROVIDERS: Emergency Medicine
DX: N39.0 Urinary tract infection, site not specified (principal); Z88.1 Allergy status to other antibiotic agents; Z79.899 Other long term (current) drug therapy; Z72.0 Tobacco use

== ENCOUNTER → 2020-02-05 | Outpatient (CLI) | payer OTHER ==
[~2020-02-05] MED LIST changes: +PYRIDIUM200 M1 PO; +SEPTDS PO
== END | disposition home or self-care (01) ==
LOC: COVID19 12:27
PROVIDERS: ATTEND Physician Assistant
DX: Z20.828 Contact with and (suspected) exposure to other viral communicable diseases (principal)

== ENCOUNTER → 2020-04-14 | Outpatient (CLI) | payer OTHER | LOC: ORTHO 02:37 | PROVIDERS: ATTEND Orthopaedic Surgery | DX: M25.512 Pain in left shoulder (principal) ==

== ENCOUNTER → 2020-07-07 | Outpatient (CLI) | payer OTHER | END | disposition home or self-care (01) | LOC: US 14:38 | PROVIDERS: ATTEND Physician Assistant | DX: M79.661 Pain in right lower leg (principal) ==

== ENCOUNTER → 2020-08-30 | Outpatient (CLI) | payer OTHER ==
[~2020-08-30] MED LIST changes: +METFORMIN HYD1000 MG PO; -Metformin Hydr500 MG PO; +VASCEPA1 G1 PO
== END | disposition home or self-care (01) ==
LOC: EDSTATUS 08-12 11:00
PROVIDERS: ATTEND Orthopaedic Surgery
DX: M75.122 Complete rotator cuff tear or rupture of left shoulder, not specified as traumatic (principal); M19.012 Primary osteoarthritis, left shoulder; I10 Essential (primary) hypertension; E78.00 Pure hypercholesterolemia, unspecified; E11.9 Type 2 diabetes mellitus without complications; Z85.118 Personal history of other malignant neoplasm of bronchus and lung; Z98.890 Other specified postprocedural states; Z79.899 Other long term (current) drug therapy

== ENCOUNTER → 2021-05-05 | Outpatient (CLI) | payer OTHER ==
[2021-05-05 13:00] LABS: HEMATOCRIT 50.1 % (42.0-52.0); MEAN CORPUSCULAR HGB 29.7 pg (27.0-31.0); MEAN CORPUSCULAR HGB CONC 33.7 g/dl (33.0-37.0); MEAN PLATELET VOLUME 9.8 fl (9.6-12.3); RED BLOOD COUNT 5.69 10*6/uL (4.50-5.90); RED CELL DISTRI WIDTH 12.8 % (0-14.5); WHITE BLOOD COUNT 8.7 10*3/uL (4.8-10.8)
[2021-05-05 13:17] LABS: ALKALINE PHOSPHATASE 119 U/L (45-117); BUN 9 mg/dl (7-24); CHLORIDE 107 mmol/L (98-107); CHOLESTEROL 333 mg/dL (<200); CREATININE 0.87 mg/dL (0.70-1.30); POTASSIUM 4.1 mmol/L (3.5-5.1); SGOT/AST 42 IU/L (3-35); SGPT/ALT 66 U/L (12-78); SODIUM 139 mmol/L (136-145); TOTAL PROTEIN 7.8 gm/dL (6.4-8.2); TRIGLYCERIDES 430 mg/dl (<150)
== END | disposition home or self-care (01) ==
LOC: LAB 12:45
PROVIDERS: ATTEND Physician Assistant
DX: Z02.4 Encounter for examination for driving license (principal); I10 Essential (primary) hypertension; E11.9 Type 2 diabetes mellitus without complications; E78.2 Mixed hyperlipidemia

== ENCOUNTER → 2021-05-09 | Outpatient (CLI) | payer OTHER ==
[~2021-05-09] MED LIST changes: +CRESTOR20 M1 PO
== END | disposition home or self-care (01) ==
LOC: CT 08:56
PROVIDERS: ATTEND Physician Assistant
DX: C34.92 Malignant neoplasm of unspecified part of left bronchus or lung (principal); R16.2 Hepatomegaly with splenomegaly, not elsewhere classified

== ENCOUNTER → 2021-05-13 | Outpatient (CLI) | payer OTHER | END | disposition home or self-care (01) | LOC: CARD 00:15 | PROVIDERS: ATTEND Physician Assistant | DX: R07.9 Chest pain, unspecified (principal) ==

== ENCOUNTER 2021-05-19 10:05 | Emergency (ER) | payer OTHER ==
[~2021-05-19] VITALS: Ht 172.7 cm; Wt 111.1 kg
[2021-05-19 10:50] LABS: BASO # 0.1 10*3/uL (0.0-0.1); BASO % 0.7 % (0.0-1.0); EOS # 0.4 10*3/uL (0.0-0.4); EOS % 3.7 % (1.0-4.0); HEMATOCRIT 51.4 % (42.0-52.0); LYMPH # 1.9 10*3/uL (1.3-4.4); LYMPH % 19.6 % (27.0-41.0); MEAN CELL VOLUME 88.2 fl (80.0-94.0); MEAN CORPUSCULAR HGB 29.5 pg (27.0-31.0); MEAN CORPUSCULAR HGB CONC 33.5 g/dl (33.0-37.0); MEAN PLATELET VOLUME 9.8 fl (9.6-12.3); MONO # 0.7 10*3/uL (0.1-1.0); MONO % 7.5 % (3.0-9.0); NEUT # 6.4 10*3/uL (2.3-7.9); NEUT % 68.1 % (47.0-73.0); PLATELET COUNT AUTOMATED 190 10*3/uL (130-400); RED BLOOD COUNT 5.83 10*6/uL (4.50-5.90); RED CELL DISTRI WIDTH 13.1 % (0-14.5); WHITE BLOOD COUNT 9.4 10*3/uL (4.8-10.8)
[2021-05-19 11:04] LABS: ALKALINE PHOSPHATASE 105 U/L (45-117); BUN 13 mg/dl (7-24); CHLORIDE 106 mmol/L (98-107); CPK 52 U/L (39-308); CREATININE 0.99 mg/dL (0.70-1.30); SGOT/AST 28 IU/L (3-35); SGPT/ALT 57 U/L (12-78); SODIUM 140 mmol/L (136-145); TOTAL PROTEIN 7.9 gm/dL (6.4-8.2)
[2021-05-19 11:14] LABS: ACT PARTIAL THROMBO TIME 27.6 SECONDS (20.0-32.1)
== END 2021-05-19 13:46 | disposition home or self-care (01) ==
LOC: ED 10:05
PROVIDERS: Internal Medicine
DX: R51.9 Headache, unspecified (principal); R19.7 Diarrhea, unspecified; R11.0 Nausea; Z79.899 Other long term (current) drug therapy; Z98.890 Other specified postprocedural states; F17.200 Nicotine dependence, unspecified, uncomplicated

== ENCOUNTER → 2022-11-30 | Outpatient (CLI) | payer MEDICARE ==
[~2022-11-30] MED LIST changes: +AMLODIPINE BESY10 MG PO; +BREZTRI AEROS10.7 GM INH; +HYDROCODONE BITA PO; +IBU800 M1 PO; +IRBESARTAN300 M1 PO; +LOPRESSOR50 M1 PO; +PREDNISONE20 M1 PO; +PROVENTIL HFA6.7 GM INH; +ZITHROMAX250 MG PO
== END | disposition home or self-care (01) ==
LOC: RESCLI 00:19
PROVIDERS: ATTEND Internal Medicine
DX: I10 Essential (primary) hypertension (principal); E78.5 Hyperlipidemia, unspecified; C34.90 Malignant neoplasm of unspecified part of unspecified bronchus or lung; M54.41 Lumbago with sciatica, right side; F33.41 Major depressive disorder, recurrent, in partial remission; K21.9 Gastro-esophageal reflux disease without esophagitis; E11.9 Type 2 diabetes mellitus without complications; Z98.890 Other specified postprocedural states; Z88.8 Allergy status to other drugs, medicaments and biological substances; Z79.899 Other long term (current) drug therapy

== ENCOUNTER 2022-12-06 02:46 | Emergency (ER) | payer MEDICARE ==
[~2022-12-06] VITALS: Ht 172.7 cm; Wt 113.4 kg
[~2022-12-06 02:46] MED LIST changes: -AMLODIPINE BESY10 MG PO; -BREZTRI AEROS10.7 GM INH; -HYDROCODONE BITA PO; -IBU800 M1 PO; -IRBESARTAN300 M1 PO; -LOPRESSOR50 M1 PO; -PREDNISONE20 M1 PO; -PROVENTIL HFA6.7 GM INH; -ZITHROMAX250 MG PO
[2022-12-06 03:09] LABS: BASO % 0.1 % (0.0-1.0); HEMATOCRIT 42.5 % (42.0-52.0); LYMPH % 8.4 % (27.0-41.0); MEAN CELL VOLUME 90.8 fl (80.0-94.0); MEAN CORPUSCULAR HGB 30.3 pg (27.0-31.0); MEAN CORPUSCULAR HGB CONC 33.4 g/dl (33.0-37.0); MEAN PLATELET VOLUME 10.1 fl (9.6-12.3); MONO # 0.3 10*3/uL (0.1-1.0); MONO % 2.5 % (3.0-9.0); NEUT # 10.9 10*3/uL (2.3-7.9); NEUT % 88.5 % (47.0-73.0); PLATELET COUNT AUTOMATED 179 10*3/uL (130-400); RED BLOOD COUNT 4.68 10*6/uL (4.50-5.90); RED CELL DISTRI WIDTH 12.8 % (0-14.5); WHITE BLOOD COUNT 12.3 10*3/uL (4.8-10.8)
[2022-12-06] MEDS ORDERED: AMLODIPINE BESY10 MG PO (03:12)
[2022-12-06] MEDS ORDERED: CYCLOBENZAPRINE10 MG PO (03:13)
[2022-12-06] MEDS ORDERED: IBU800 M1 PO (03:13)
[2022-12-06] MEDS ORDERED: IRBESARTAN300 M1 PO (03:14)
[2022-12-06] MEDS ORDERED: LOPRESSOR50 M1 PO (03:14)
[2022-12-06] MEDS ORDERED: HYDROCODONE BITA PO (03:16)
[2022-12-06] MEDS ORDERED: BREZTRI AEROS10.7 GM INH (03:18)
[2022-12-06] MEDS ORDERED: PROVENTIL HFA6.7 GM INH (03:18)
[2022-12-06 03:31] LABS: ALKALINE PHOSPHATASE 95 U/L (46-116); BUN 16 mg/dl (9-23); CHLORIDE 101 mmol/L (98-107); POTASSIUM 4.2 mmol/L (3.4-5.1); SGPT/ALT 40 U/L (10-49); TOTAL PROTEIN 7.7 gm/dL (6.0-8.0)
[2022-12-06] MEDS ORDERED: ZITHROMAX250 MG PO (05:06)
[2022-12-06] MEDS ORDERED: PREDNISONE20 M1 PO (05:06)
== END 2022-12-06 05:10 | disposition home or self-care (01) ==
LOC: ED 02:46
PROVIDERS: Internal Medicine
DX: J44.1 Chronic obstructive pulmonary disease with (acute) exacerbation (principal); D72.829 Elevated white blood cell count, unspecified; E11.65 Type 2 diabetes mellitus with hyperglycemia; E11.22 Type 2 diabetes mellitus with diabetic chronic kidney disease; I12.9 Hypertensive chronic kidney disease with stage 1 through stage 4 chronic kidney disease, or unspecified chronic kidney disease; N18.31 Chronic kidney disease, stage 3a; K21.9 Gastro-esophageal reflux disease without esophagitis; E78.00 Pure hypercholesterolemia, unspecified; Z87.442 Personal history of urinary calculi; Z88.1 Allergy status to other antibiotic agents; Z98.890 Other specified postprocedural states; F12.10 Cannabis abuse, uncomplicated; F17.290 Nicotine dependence, other tobacco product, uncomplicated

== ENCOUNTER → 2023-02-19 | Outpatient (CLI) | payer MEDICARE ==
[~2023-02-19] MED LIST changes: +AMLODIPINE BESY10 MG PO; +BREZTRI AEROS10.7 GM INH; +HYDROCODONE BITA PO; +IBU800 M1 PO; +IRBESARTAN300 M1 PO; +LOPRESSOR50 M1 PO; +PREDNISONE20 M1 PO; +PROVENTIL HFA6.7 GM INH; +ZITHROMAX250 MG PO
== END | disposition home or self-care (01) ==
LOC: RESCLI 04:43
PROVIDERS: ATTEND Internal Medicine
DX: G89.29 Other chronic pain (principal); I10 Essential (primary) hypertension; E78.5 Hyperlipidemia, unspecified; F17.210 Nicotine dependence, cigarettes, uncomplicated; E11.9 Type 2 diabetes mellitus without complications; Z88.8 Allergy status to other drugs, medicaments and biological substances; Z79.899 Other long term (current) drug therapy

== ENCOUNTER → 2023-09-19 | Outpatient (CLI) | payer OTHER | END | disposition home or self-care (01) | LOC: CT 08-28 10:00 | PROVIDERS: ATTEND Physician Assistant | DX: Z12.2 Encounter for screening for malignant neoplasm of respiratory organs (principal); C34.92 Malignant neoplasm of unspecified part of left bronchus or lung; F17.210 Nicotine dependence, cigarettes, uncomplicated; I25.10 Atherosclerotic heart disease of native coronary artery without angina pectoris; R16.2 Hepatomegaly with splenomegaly, not elsewhere classified; Z98.890 Other specified postprocedural states ==

== ENCOUNTER 2023-11-15 14:20 | Emergency (ER) | payer OTHER ==
[~2023-11-15] VITALS: Ht 172.7 cm; Wt 113.4 kg
[2023-11-15] MEDS ORDERED: MORPHINE Sulfate 2 MG/ML SYR IV ONE (14:50)
[2023-11-15] MEDS ORDERED: Ondansetron Hydrochloride 4 MG/2 ML VIAL IV ONE (14:50)
[2023-11-15 14:59] LABS: BASO # 0.1 10*3/uL (0.0-0.1); BASO % 0.8 % (0.0-1.0); EOS # 0.3 10*3/uL (0.0-0.4); EOS % 2.6 % (1.0-4.0); HEMATOCRIT 43.9 % (42.0-52.0); LYMPH % 19.7 % (27.0-41.0); MEAN CELL VOLUME 88.7 fl (80.0-94.0); MEAN CORPUSCULAR HGB 30.3 pg (27.0-31.0); MEAN CORPUSCULAR HGB CONC 34.2 g/dl (33.0-37.0); MONO # 1.3 10*3/uL (0.1-1.0); MONO % 12.4 % (3.0-9.0); NEUT # 6.5 10*3/uL (2.3-7.9); NEUT % 64.1 % (47.0-73.0); PLATELET COUNT AUTOMATED 202 10*3/uL (130-400); RED BLOOD COUNT 4.95 10*6/uL (4.50-5.90); RED CELL DISTRI WIDTH 13.8 % (0-14.5); WHITE BLOOD COUNT 10.1 10*3/uL (4.8-10.8)
[2023-11-15] MEDS ORDERED: IOHEXOL 300 MG/ML 100 ML VIAL IV ONE (15:05)
[2023-11-15 15:22] LABS: ALKALINE PHOSPHATASE 112 U/L (46-116); BUN 9 mg/dl (9-23); CHLORIDE 103 mmol/L (98-107); LIPASE 33 U/L (12-53); POTASSIUM 3.7 mmol/L (3.4-5.1); SGPT/ALT 48 U/L (5-49); TOTAL PROTEIN 8.3 gm/dL (6.0-8.0)
[2023-11-15] MEDS ORDERED: ACETAMINOPHEN 325 MG TAB PO ONE (15:55)
[2023-11-15] MEDS ORDERED: Ketorolac Tromethamine 30 MG/ML VIAL IV ONE (16:00)
[2023-11-15 16:34] LABS: BILIRUBIN Negative (Negative); BLOOD Negative (Negative); CLARITY Clear (Clear); COLOR Yellow (Yellow); GLUCOSE Negative (Negative); KETONE Negative (Negative); LEUKO ESTERASE Negative (Negative); NITRITE Negative (Negative); PH 7.5 (4.5-8.0); SPECIFIC GRAVITY >= 1.030 (1.001-1.030)
[2023-11-15] MEDS ORDERED: Ondansetron4 MG PO (17:20)
[2023-11-15] MEDS ORDERED: VENT7GM INH (17:20)
[2023-11-15] MEDS ORDERED: ALBUTEROL2.5 MG/0.5 INH (20:37)
== END 2023-11-15 17:58 | disposition home or self-care (01) ==
LOC: ED 14:20
PROVIDERS: Nurse Practitioner
DX: B34.9 Viral infection, unspecified (principal); Z20.822 Contact with and (suspected) exposure to COVID-19; R11.0 Nausea; I10 Essential (primary) hypertension; E11.9 Type 2 diabetes mellitus without complications; J44.9 Chronic obstructive pulmonary disease, unspecified; Z87.442 Personal history of urinary calculi; E78.00 Pure hypercholesterolemia, unspecified; F12.10 Cannabis abuse, uncomplicated; Z72.0 Tobacco use; Z88.1 Allergy status to other antibiotic agents; Z98.890 Other specified postprocedural states

== ENCOUNTER 2024-12-13 14:22 | Emergency (ER) | payer MEDICARE ==
[~2024-12-13] VITALS: Ht 172.7 cm; Wt 104.3 kg
[~2024-12-13 14:22] MED LIST changes: +ALBUTEROL2.5 MG/0.5 INH; +Ondansetron4 MG PO; +VENT7GM INH
[2024-12-13] MEDS ORDERED: Cyclobenzaprine Hydrochlorid 10 MG TAB PO ONE (14:55)
[2024-12-13] MEDS ORDERED: CYCLOBENZAPRINE10 MG PO (16:16)
[2024-12-13] MEDS ORDERED: TRAZODONE50 MG PO (16:16)
[2024-12-13] MEDS ORDERED: OXYCODONE HCL (IR) 10 MG TABLET PO ONE (16:20)
== END 2024-12-13 16:30 | disposition home or self-care (01) ==
LOC: ED 14:22
DX: M54.42 Lumbago with sciatica, left side (principal); M47.816 Spondylosis without myelopathy or radiculopathy, lumbar region; Z88.1 Allergy status to other antibiotic agents; Z79.899 Other long term (current) drug therapy; Z79.84 Long term (current) use of oral hypoglycemic drugs; Z96.612 Presence of left artificial shoulder joint; Z98.890 Other specified postprocedural states; Z87.891 Personal history of nicotine dependence

== ENCOUNTER 2025-01-31 06:15 | Emergency (ER) | payer MEDICARE ==
[~2025-01-31] VITALS: Ht 172.7 cm; Wt 111.1 kg
[~2025-01-31 06:15] MED LIST changes: +TRAZODONE50 MG PO
[2025-01-31] MEDS ORDERED: Ondansetron Hydrochloride 4 MG/2 ML VIAL IV ONE ×2 (06:35→08:45)
[2025-01-31] MEDS ORDERED: SODIUM CHLORIDE 0.9% 1,000 ML IV ONE (06:35)
[2025-01-31 06:54] LABS: BASO # 0.1 10*3/uL (0.0-0.1); BASO % 0.8 % (0.0-1.0); EOS # 0.2 10*3/uL (0.0-0.4); EOS % 1.6 % (1.0-4.0); MEAN CELL VOLUME 88.5 fl (80.0-94.0); MEAN CORPUSCULAR HGB 29.5 pg (27.0-31.0); MEAN PLATELET VOLUME 10.3 fl (9.6-12.3); MONO # 0.8 10*3/uL (0.1-1.0); MONO % 8.2 % (3.0-9.0); NEUT # 7.5 10*3/uL (2.3-7.9); NEUT % 76.6 % (47.0-73.0); NUCLEATED RED BLOOD CELL 0.0 % (0.0-0.0); NUCLEATED RED BLOOD CELL 0.0 10*3/uL (0.0-0.0); PLATELET COUNT AUTOMATED 160 10*3/uL (130-400); RED CELL DISTRI WIDTH 13.6 % (0-14.5)
[2025-01-31 07:40] LABS: BUN 13 mg/dl (9-23); SGPT/ALT 33 U/L (5-49)
[2025-01-31] MEDS ORDERED: HYDROmorphONE Hydrochloride 0.5 MG/0.5 ML SYRINGE IV ONE (08:40)
[2025-01-31] MEDS ORDERED: SODIUM CHLORIDE 0.9% 500 ML IV ONE (09:00)
== END 2025-01-31 09:12 | disposition short-term general hospital (02) ==
LOC: ED 06:15
PROVIDERS: Emergency Medicine
DX: A41.9 Sepsis, unspecified organism (principal); N13.2 Hydronephrosis with renal and ureteral calculous obstruction; F17.200 Nicotine dependence, unspecified, uncomplicated; Z87.442 Personal history of urinary calculi; Z88.1 Allergy status to other antibiotic agents; Z79.899 Other long term (current) drug therapy; Z79.84 Long term (current) use of oral hypoglycemic drugs; Z96.612 Presence of left artificial shoulder joint; Z98.890 Other specified postprocedural states